=== PATIENT | male | born 1970 | race Caucasian/White ===

== ENCOUNTER 2017-01-13 17:57 | Emergency (ER) | payer OTHER ==
[~2017-01-13] VITALS: Ht 185.4 cm; Wt 88.5 kg
[2017-01-13] MEDS ORDERED: TOPI-33 PO (18:13)
[2017-01-13] MEDS ORDERED: LISI-170 PO (18:13)
[2017-01-13] MEDS ORDERED: GABA600T2 PO (18:13)
[2017-01-13] MEDS ORDERED: LORazepam 2 MG/ML, 1ML ONE (18:16)
[2017-01-13] MEDS ORDERED: SODIUM CHLORIDE FLUSH 10ML SYR IVF ONE (18:30)
[2017-01-13] MEDS ORDERED: SODIUM CHLORIDE 0.9% 1,000ML IVBOLUS ONE (18:30)
[2017-01-13] MEDS ORDERED: LORazepam 2 MG/ML, 1ML IVPush ONE (18:30)
[2017-01-13 18:39] LABS: ASPARTATE AMINO TRANSFERASE 10 U/L (15-37); BLOOD UREA NITROGEN 17 mg/dL (7-18)
[2017-01-13] MEDS ORDERED: KETOROLAC 30 MG/1 ML ONE (20:19)
[2017-01-13 20:32] LABS: DAU SCREEN DISCLAIMER
[2017-01-13 21:19] VITALS: BP 133/96
== END 2017-01-13 21:03 ==
LOC: ED 20:57
DX: G40.319 Generalized idiopathic epilepsy and epileptic syndromes, intractable, without status epilepticus (principal); I10 Essential (primary) hypertension; F17.200 Nicotine dependence, unspecified, uncomplicated
CPT/HCPCS: 36415; 80053; 80307; 85025; 96361; 96374; 99284; J2060; J7030